=== PATIENT | female | born 1985 | race Caucasian/White ===

== ENCOUNTER 2023-07-23 10:27 | Emergency (ER) | payer OTHER ==
[~2023-07-23] VITALS: Ht 182.9 cm; Wt 88.2 kg
[2023-07-23 11:43] VITALS: BP 117/66; PULSE 72; RESP 15; TEMP 97.5; O2SAT 100
[2023-07-23] MEDS ORDERED: IBUP-1456 PO (13:00)
== END 2023-07-23 13:04 | disposition home or self-care (01) ==
LOC: ER 10:27
DX: S92.341G Displaced fracture of fourth metatarsal bone, right foot, subsequent encounter for fracture with delayed healing (principal); S92.351G Displaced fracture of fifth metatarsal bone, right foot, subsequent encounter for fracture with delayed healing; Z79.1 Long term (current) use of non-steroidal anti-inflammatories (NSAID); X58.XXXD Exposure to other specified factors, subsequent encounter
CPT/HCPCS: 73630